=== PATIENT | female | born 1970 | race Caucasian/White ===

== ENCOUNTER → 2020-12-31 05:11 | Outpatient (CLI) | payer BC, SELFPAY ==
[2020-12-31 19:22] LABS: SARS-CoV-2 RNA PCR Negative
== END ==
PROVIDERS: PCP Family Medicine Sports Medicine; Visit Provider Obstetrics & Gynecology Gynecology
DX: Z01.812 Encounter for preprocedural laboratory examination (principal); Z20.822 Contact with and (suspected) exposure to COVID-19
CPT/HCPCS: C9803; U0003; U0005

== ENCOUNTER 2021-01-03 01:08 | Day surgery (SDC) | payer BC, SELFPAY ==
[2020-12-20 15:21] VITALS: BMI 25.0
--- NOTE | 2021-01-03 07:37 | WPDHPUPDATE1 ---
History and Physical Update Update Date/Time: 01/03/21 07:37 History and Physical has been reviewed, including an updated exam of the patient. There are NO changes in the patient's condition. Risks, benefits, and alternatives have been discussed and questions answered. Patient agrees to proceed with procedure.
--- NOTE | 2021-01-03 07:37 | PM.HPGS ---
History of Present Illness History of Present Illness Consent: Risks, benefits, and alternatives have been discussed and questions answered. Patient agrees to proceed with procedure. Chief complaint: menorrhagia, fibroids Narrative: Yessy Guillaume is a 50 year old female with frequent cycle over past year. U/s showed multiple fibroids and lining of 1 cm. Patient also recently diagnosed with hypothyroidism. Recommend further work up with hysteroscopy and D&C with possible myosure. Risks of infection, bleeding, perforation, and fluid imbalance reviewed. Questions answered and agrees to proceed. Review of Systems Review of Systems: Narrative: not repeated day of surgery; patient states no changes in status PMFSH Past Medical History Medical History (Updated 01/03/21 @ 07:42 by Jeannette Brown MD) Hypothyroid (normal spontaneous vaginal delivery) x 2 Social History Social History Smoking status: Never smoker Living arrangements: with family Spiritual care concerns: No Meds Home Medications and Allergies Home Medications Medication Instructions Recorded Confirmed Type levothyroxine 25 mcg PO DAILY 12/20/20 12/20/20 History multivitamin 1 tablet PO DAILY 12/20/20 12/20/20 History vitamin B complex 1 tablet PO DAILY 12/20/20 12/20/20 History Allergies Allergy/AdvReac Type Severity Reaction Status Date / Time Penicillins Allergy Severe Hives Verified 12/20/20 15:19 Exam Const: General: healthy appearing and alert Orientation/consciousness: patient oriented x3 Resp: Effort & Inspection: normal respiratory effort Auscultation: clear to auscultation bilaterally Cardio: Rate: regular rate Rhythm: regular rhythm GI: GI Palp: Yes Soft to palpation, No Tenderness to palpation present (GI) and No Palpable mass present : External Female Exam: normal external appearance Speculum Exam - Vagina: normal appearance of the vagina and normal vaginal discharge Speculum Exam - Cervix: normal appearance of the cervix Bimanual exam- vagina & uterus: consistency normal and other (uterus 10 cm) Bimanual Exam- Adnexa, other: normal adnexae and No adnexal tenderness Neuro: General: patient oriented x3 Assessment and Plan Assessment and plan (1) Menorrhagia: Code(s): N92.0 - Excessive and frequent menstruation with regular cycle Status: Acute Assessment and Plan: plan to proceed with hysteroscopy and D&C with possible myosure
[2021-01-03 08:10] VITALS: BP 117/66; PULSE 56; RESP 16; TEMP 36.6; O2SAT 100
[2021-01-03] MEDS: ACETAMINOPHEN 500 MG TABLET 1000 MG PO (08:39)
[2021-01-03] MEDS: LACTATED RINGERS 1,000 ML 30 ML IV CONT (08:45)
--- NOTE | 2021-01-03 09:11 | WPDANESEPPF ---
Anes - Initial Pre Proc Eval Procedure: Operation Date: 01/03/21 10:15 Proposed Procedures p Hysteroscopy Dilation and Curettage With Possible Myosure - Jeannette Brown MD Date/Time: 01/03/21 09:11 Surgeon: Jeannette Brown MD Pre Op Diagnosis: menorrhagia, fibroids Patient Data Age: 50 Gender: F Height: 5 ft 6 in Weight: 72.3 kg Last Vital Signs Temp 36.6 C 01/03/21 08:10 Pulse 56 L 01/03/21 08:10 Resp 16 01/03/21 08:10 BP 117/66 01/03/21 08:10 Pulse Ox 100 01/03/21 08:10 Allergies Allergy/AdvReac Type Severity Reaction Status Date / Time Penicillins Allergy Severe Hives Verified 01/03/21 08:36 Home Medications Medication Instructions Recorded Confirmed Type levothyroxine 25 mcg PO DAILY 12/20/20 01/03/21 History multivitamin 1 tablet PO DAILY 12/20/20 01/03/21 History vitamin B complex 1 tablet PO DAILY 12/20/20 01/03/21 History Patient hx anesthesia problems: none Family hx anesthesia problems: none PMFSH Past Medical History Medical History Hypothyroid (normal spontaneous vaginal delivery) x 2 Social History Social History Smoking status: Never smoker Living arrangements: with family Spiritual care concerns: No Anes - Eval Final PreProcedure Day of Procedure 01/03/21 09:11 Patient weight: normal Heart: regular rate and rhythm Lungs: clear to auscultation Airway: Mallampati scale class II Neurological: alert and oriented Last oral intake: >/= 8 hours ASA classification: II Emergent: no Anesthetic plan: proceed Anesthesia type and monitoring: general GIVS and standard monitoring Informed Consent: The patient's anesthetic plan and its attendant risks and benefits were discussed with the patient/family/POA. Questions were solicited and answers provided to the satisfaction of the patient/family/POA.
[2021-01-03] MEDS: KETOROLAC 30 MG/ML VIAL (*BKC) IV PUSH (10:32)
--- NOTE | 2021-01-03 10:35 | PM.PROC ---
Procedure Note - Detailed Date of procedure: 01/03/21 Pre-op diagnosis: menorrhagia, fibroids Post-op diagnosis: same Procedure performed: D&C hysteroscopy with myosure Description of procedure: The patient was taken to the operating room and placed under anesthesia in the dorsal lithotomy position. She is prepped and draped in the usual sterile fashion. [place] speculum was placed in the vagina and the cervix is grasped on the anterior lip with a tenaculum. The cervix is injected with lidocaine in each quadrant. The uterus is sounded to 8cm. The cervix is serially dilated with Hegar. Diagnostic hysteroscope was placed and a large lesion is noted anterior and to the left so the MyoSure device is opened in placed. The lesion is removed easily with the MyoSure device and the consistency appears to be a polyp. The hysteroscope was removed and the sharp curette is used to sharply curette the endometrium until a good uterine cry is noted in all areas. All instruments are removed. Sponge, needle, and instrument counts are correct. The patient is awakened from anesthesia and taken to recovery in stable condition. Anesthesia: MAC and local Surgeon: Jeannette Brown MD Estimated blood loss (mL): 5 Drains: No Packing: No Pathology: yes (endometrial shavings and curettings) Complications: No immediate complications Condition: stable Disposition: PACU Findings: uterus 8 cm; large anterior left lesion consistent with polyp; no visible fibroids; atrophic appearing endometrium
[2021-01-03 10:40] VITALS: BP 95/53; PULSE 52; RESP 16; O2SAT 94
[2021-01-03 11:00] VITALS: BP 95/63; PULSE 50; RESP 16; O2SAT 97
[2021-01-03 11:20] VITALS: BP 107/66; PULSE 55; RESP 16
== END 2021-01-03 11:30 | disposition home or self-care (01) ==
PROVIDERS: PCP Family Medicine Sports Medicine; Visit Provider Obstetrics & Gynecology Gynecology
PROC: 0U5B8ZZ Destruction of Endometrium, Via Natural or Artificial Opening Endoscopic (ICD-10-PCS; CPT 58563; principal; 2021-01-03 10:15)
DX: N92.0 Excessive and frequent menstruation with regular cycle (principal); N84.0 Polyp of corpus uteri; E03.9 Hypothyroidism, unspecified
CPT/HCPCS: 58558; 88305; A9270; J1885; J2250; J2405; J2704; J3010; J7030; J7120

== ENCOUNTER 2024-09-27 08:00 | Outpatient (CLI) | payer BC, SELFPAY ==
--- NOTE | ~2024-09-27 | DEXA_ITS ---
Bone Density Report Name: OCTAVIANO VIZCARRA Age: 54 Sex: Female Ethnicity: White Date of : 1970 Indication: postmenopausal; screening for osteoporosis; parental hip fracture; Referring Provider: KULWANT ARTEAGA Study: Bone densitometry was performed. Exam Date: September 27, 2024 Accession number: [id number] Bone Density: Region BMD T-score Z-score Classification AP Spine(L1-L4) 1.022 -0.2 0.8 Normal Femoral Neck (Left) 0.780 -0.6 0.4 Normal Total Hip (Left) 0.942 0.0 0.6 Normal Femoral Neck (Right) 0.801 -0.4 0.6 Normal Total Hip (Right) 0.977 0.3 0.9 Normal Total Hip Mean 0.959 0.2 0.8 Normal World Health Organization criteria for BMD impression classify patients as: Normal (T-score at or above -1.0), Osteopenia (T-score between -1.0 and -2.5), or Osteoporosis (T-score at or below -2.5). 10-year Fracture Risk: FRAX not reported because: All T-scores for Spine Total, Hip Total, Femoral Neck at or above -1.0 Clinical Information Provided by Patient: Parent has had a hip fracture Has used the following medications: Vitamin D Patient maximum height was 65 Menopause Age: 52 Does not regularly consume dairy products Drinks caffeinated beverages Onset of menses at age 11 Number of children 2 Impression: The patient has normal bone mass. The patient has risk factors, including: parental hip fracture. Discussion: BONE DENSITY IS ABOVE THE MINIMUM DESIRABLE LEVEL AT ALL SKELETAL SITES TESTED. This patient?s bone mineral density is above the minimum desirable level (T-score -1.0 or better) at all sites measured. The patient should follow a healthful lifestyle (good nutrition with adequate calcium and vitamin D, and appropriate weight-bearing exercise). Follow-Up: Consider repeating this study in 5 years or sooner if there is some new clinical indication. Reported by: LIANET on 09/27/2024 8:38:00 AM. Reviewed, dictated and finalized at location AM[facility]
== END 2024-09-27 08:01 | disposition home or self-care (01) ==
PROVIDERS: PCP Family Medicine; Visit Provider Advanced Practice Midwife
DX: Z13.820 Encounter for screening for osteoporosis (principal); Z78.0 Asymptomatic menopausal state
CPT/HCPCS: 77080

== ENCOUNTER 2024-11-06 09:47 | Outpatient (CLI) | payer BC, SELFPAY ==
--- OUTSIDE RECORDS SUMMARY | 2024-11-06 10:05 | XMS_ITS | Clinical Summary ---
Author Organization [facility] Address [facility]ly [facility] [place] [address] Care Team Providers Care Advertising Analyst Name Role Phone Treasure Clemente DO Primary Care Provider [phone] Allergies Active Allergy Reactions Criticality Noted Date Comments Cyclobenzaprine Dizziness 05/07/2014 Penicillins Hives 05/09/2013 Medications Multiple Vitamins-Minera ls (MULTIVITAMIN ADULT OR) Take daily. Active ESTRING 2 MG VAGINAL RING,7.5 MCG/24HRS, 2 MG RING Use as directed. 01/13/2022 Active Estradiol-Noret hindrone Acet 0.5-0.1 MG Tab Take 1 tablet by mouth daily. 02/13/2022 Active levothyroxine 25 MCG tablet Take 25 mcg by mouth in the morning. 01/09/2022 Active fluticasone propionate (FLONASE) 50 MCG/ACT nasal sprayIndication s:Non-seasonal allergic rhinitis due to other allergic trigger SPRAY 2 SPRAYS INTO EACH NOSTRIL EVERY DAY 48 mL 04/02/2023 Active Active Problems Problem Noted Date Diagnosed Date Family history of cardiovascular disease 020 Family history of diabetes mellitus in mother Vitamin D deficiency 08/12/2020 Immunizations Name Administration Dates Next Due Flucelvax 6 Months+ (Prefill ed Syringe) 07/15/2020 Fluzone 6 Months+ Quad (0.5 mL Prefilled Syringe) 2019 Hepatitis A Vaccine - 2 Dose 12/15/2013,06/06/20 13 Influenza (Generic) 07/15/2020, 7,09/04/2016, 015,07/26/2014,07/22/2013 Polio Ipv (Generic) 06/06/2013 Tdap (Generic) 06/06/2013 Typhoid Vaccine, Akd 06/06/2013 Yellow Fever Vaccine 09/04/2013 Family History Medical History Relation Comments Breast Cancer Neg Hx Relation Status Comments Father dec of int obstr uction Mother dm metabolic syn drome Social History Tobacco Use Types Packs/Day Years Used Date Smoking Tobacco: Never Smokeless Tobacco: Never Tobacco Cessation:Counseling Given: Not Answered Alcohol Use Standard Drinks/Week Comments Not Currently 0 (1 standard drink = 0.6 oz pur e alcohol) Comments No Sex and Gender Information Value Date Recorded Sex Assigned at Female 08/12/2020 9:37 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 Legal Sex Female 7:53 AM CDT Gender Identity Female 08/12/2020 9:37 AM RIVER 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 Sexual Orientation Straight 08/12/2020 9: 37 AM RIVER 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 Last Filed Vital Signs Vital Sign Reading Time Taken Comments Blood Pressure 110/70 11/16/2022 3:55 PM RIVER 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 Pulse 63 11/16/2022 3:55 PM RIVER 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 Temperature 36.8 C (98.3 F) 11/16/2022 3:55 PM RIVER 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 Respiratory Rate 16 11/16/2022 3:55 PM RIVER 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 Oxygen Saturation 99% 11/16/2022 3:55 PM RIVER 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 Inhaled Oxygen Concentration - - Weight 72.1 kg (159 lb) 11/16/2022 3:55 PM RIVER 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 Height 167.6 cm (5' 6 ) 11/16/2022 3:55 PM RIVER 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 Body Mass Index 25.66 11/16/2022 3:55 PM RIVER 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 Plan of Treatment Health Maintenance Due Date Last Done Comments Cervical Cancer Screening Pap Smear (Age 30 to 64) Every 3 Years 1970 Annual Physical 1973 Hepatitis B Vaccines (1 of 3 - 19+ 3-dose series) 1989 Cervical Cancer Screening Pap with HPV Testing (Age 30 to 64) Every 5 Years 2000 Cervical Cancer Screening with HPV 2000 Zoster Vaccines (1 of 2) 2020 DTaP, Tdap and Td Vaccines (2 - Td or Tdap) 06/06/2023 06/06/2013 COVID-19 Vaccine ( - season) 2024 Influenza Adult (#1) 2024 07/15/2020, 07/15/2020, 2019, Additional history exists PHQ-2 (Physician [place]) 10/01/2024 Mammogram Screening 05/21/2026 05/21/2024, 05/16/2023, 04/28/2022, Additional history exists Colorectal Cancer Screening Colonoscopy (10 Years) 10/25/2031 10/25/2021, 09/28/2020 Colorectal Cancer Screening FIT/FOBT (1 Year) Discontinued 07/02/2018 Colorectal Cancer Screening FIT-DNA (3 Years) Discontinued 08/31/2020, 08/31/2020 Hepatitis C Completed 11/29/2020 Meningococcal B Vaccine Aged Out No l onger eligible based on patient's age to complete this topic Meningococcal Vaccine Aged Out No mojgan dante eligible based on patient's age to complete this topic Pneumococcal Vaccine: Pediatrics (0 to 5 Years) and At-Risk Patients (6 to 64 Years) Aged Out No longer eligible based on patient's age to complete this topic RSV Immunizations Under 20 Months Aged Out No longer eligible based on patient's age to complete this topic Procedures Procedure Name Priority Date/Time Associated Diagnosis Comments MG SCREENING [address] DIGI Routine 05/21/2024 8:54 AM CDT Screening mammogram for breast cancer COLONOSCOPY GENERIC (SCAN ORDER) 10/25/2021 HEPATITIS C RNA W/ REFLX GENOTYPE Routine 11/29/2020 7:11 AM RIVER 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 COLOGUARD (SCAN ORDER) Routine 08/31/2020 OCCULT BLOOD, FECES Routine 07/02/2018 3 :40 PM CDT from Last 3 Months or Most Recently Relevant to Health Maintenance Results * MG SCREENING W [address] DIGI (05/21/2024 8:54 AM CDT) Anatomical Region Laterality Modality Breast Bilateral Computed Tomogra phy 05/21/2024 12:2 6 PM CDT Impressions 05/21/2024 12:41 PM CDT ===== IMPRESSION: ===== 1. Stable mammographic appearance with no new findings to suggest malignancy in either breast. Assessment: ACR BI-RADS 1 - NEGATIVE Recommendation: 1:Routine Screening Bilateral Comments: Ordered By: DESTINEY KIM Interpreted By: Martha Navarrete, 05/21/2024 12:26 PM Narrative 05/21/2024 12:41 PM CDT EXAMINATION: Digital bilateral screening mammogram with 3-D tomosynthesis EXAM DATE/TIME: 05/21/2024 8:39 AM REASON FOR EXAM: Routine screening COMPARISON: 04/28/2022.. 05/16/2023 Technique: Digital screening mammography of both breasts was performed in addition to 3-D Tomosynthesis technique. This study was read with the assistance of a computer-aided detection system. Tissue density: There are scattered areas of fibroglandular density. Findings: There is no new focal asymmetry, dominant mass lesion, area of skin thickening, or cluster of suspicious appearing calcifications in either breast to suggest malignancy. Destiney Kim CREW ATTENDANT-BC MAMMO Final Resu lt * COLONOSCOPY GENERIC (10/25/2021) 10/25/2021 Narrative 10/25/2021 Ordered by an unspecified provider. us Documents Scanned SCANNING Final Result * HEPATITIS C RNA W/ REFLX GENOTYPE (11/29/2020 7:11 AM RIVER 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) HEPATITIS C AB NON-REACTIVE NON-REACT ELLEN [facility] SIGNAL TO CUTOFF 0.01 <1.00 [facility] Comment: HCV antibody was non-reactive. There is no laboratory evidence of HCV infection. In most cases, no further action is required. However, if recent HCV exposure is suspected, a test for HCV RNA (test code 89199) is suggested. For additional information please refer to http://education.[employer].com.[employer]/faq/DHZ95w5 (This link is being provided for informational/ educational purposes only.) ANTONY DENNIS DO,MPH THIS TEST WAS PERFORMED AT [facility] [address] [place] [address] HEPATITIS C AB NO [facility] COMMENT Not required [facility] 11/29/2020 7:11 AM RIVER 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 11/29/2020 7:12 AM RIVER 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 us Treasure Clemente DO LABORATORY Final Result [address] [place] [address] * COLOGUARD (SCAN) (08/31/2020) COLOGUARD POSITIVE HS ONBASE Stool specimen (specimen) 08/31/2020 us Documents Scanned SCANNING Final Result Performing Organization Address City/[facility]/ZIP Co de Phone Number [facility] ONBASE * OCCULT BLOOD, FECES (07/02/2018 3:40 PM CDT) OCCULT BLOOD neg [facility] P TO EPIC CONVERSION 07/02/2018 3:40 PM CDT 07/02/2018 3:40 PM CDT Narrative [facility] TO EPIC CONVERSION - 07/02/2018 3:40 PM CDT This lab was migrated from [facility] and may be missing annotations or result text, please check the Media tab for the most complete results. us Ana BONDSP BODY FLUIDS AND STOOLS CLARENCE ZALDIVAR Final Result [facility] TO EPIC CONVERSION from Last 3 Months or Most Recently Relevant to Health Maintenance [facility] Directives Documents on File Type Date Recorded Patient Groundman/Lineman Expl anation Advance Directives and Living Will 09/28/2020 12:00 AM ADVANCED DIRECTIVES Care Teams Advertising Analyst Relationship Specialty Start Date End Date Treasure Clemente DO [address] [place] [address] [place] [address] PCP - General FAMILY PRACTICE 08/22/19
[2024-11-07 11:39] LABS: Kit Draw Collected
== END 2024-11-06 09:48 | disposition home or self-care (01) ==
LOC: ANHGOSHLAB 09:48
PROVIDERS: PCP Family Medicine; Visit Provider Family Medicine
DX: K90.49 Malabsorption due to intolerance, not elsewhere classified (principal)
CPT/HCPCS: 36415